=== PATIENT | male | born 1970 ===

== ENCOUNTER 2017-03-29 23:16 | Emergency (ER) | payer SELFPAY ==
[2017-03-29 23:36] VITALS: O2SAT 97
[2017-03-30] MEDS ORDERED: Albuterol-Ipratrop 3 mg / 0.5 (3 ml) UD IH STA (03:12)
--- NOTE | 2017-03-30 03:13 | ED PDOC ---
HPI: CCC, URI, Sore Throat Time Seen by Provider: 03/30/17 02:47 Chief Complaint (Nursing): Flu-like Symptoms Chief Complaint (Provider): flu-like symptoms History Per: Patient, Family (brother) History/Exam Limitations: no limitations Onset/Duration Of Symptoms: Days (4) Current Symptoms Are (Timing): Still Present Additional Complaint(s): 47 y/o male presents with flu-like symptoms x 4 days. Patient reports fever, headache, bodyaches, nasal congestion, productive cough. Denies ear pain, vomiting, chest pain, shortness of breath, palpitations, changes in bowel movements, recent travel, sick contacts. Tylenol last taken at noon yesterday. Past Medical History Reviewed: Historical Data, Nursing Documentation, Vital Signs Vital Signs: Last Vital Signs Temp 100.5 F H 03/29/17 23:33 Pulse 74 03/29/17 23:33 Resp 16 03/29/17 23:33 BP 130/73 03/29/17 23:33 Pulse Ox 97 03/30/17 04:30 - Medical History PMH: Hypercholesterolemia - Surgical History Surgical History: No Surg Hx - Family History Family History: States: Unknown Family Hx - Home Medications Home Medications: Ambulatory Orders Medication Instructions Recorded Dicyclomine [Bentyl] 20 mg PO Q12 PRN #20 tab 05/14/14 Ondansetron [Zofran Odt] 4 mg PO Q6 PRN #12 odt 05/14/14 Fluticasone Nasal [Flonase] 1 actuation NS BID #1 bottle 03/30/17 Ibuprofen [Motrin Tab] 1 tab PO Q6 PRN #20 tab 03/30/17 Promethazine DM [Phenergan DM 5 ml PO Q6 PRN #1 bottle 03/30/17 Syrup] - Allergies Allergies/Adverse Reactions: Allergies Allergy/AdvReac Type Severity Reaction Status Date / Time No Known Allergies Allergy Verified 03/29/17 23:33 Review of Systems ROS Statement: Except As Marked, All Systems Reviewed And Found Negative Constitutional: Positive for: Fever, Chills ENT: Positive for: Nose Congestion Respiratory: Positive for: Cough, Sputum Physical Exam - Reviewed Nursing Documentation Reviewed: Yes Vital Signs Reviewed: Yes - Physical Exam Appears: Positive for: Well, Non-toxic, No Acute Distress Head Exam: Positive for: ATRAUMATIC, NORMAL INSPECTION, NORMOCEPHALIC Skin: Positive for: Normal Color Eye Exam: Positive for: Normal appearance ENT: Positive for: Nasal Congestion Cardiovascular/Chest: Positive for: Regular Rate, Rhythm Respiratory: Positive for: Normal Breath Sounds Gastrointestinal/Abdominal: Positive for: Normal Exam Back: Positive for: Normal Inspection Extremity: Positive for: Normal ROM Neurologic/Psych: Positive for: Alert, Oriented - ECG O2 Sat by Pulse Oximetry: 97 - Radiology X-Ray: Viewed By Tn X-Ray Interpretation: No Acute Disease - Progress ED Course And Treament: chest xray Patient educated on findings, out of window for tamiflu treatment. Rx ibuprofen, flonase, promethazine DM given advised fluids, rest. Follow up PMD 2-3 days. Return precautions given. Disposition - Clinical Impression Clinical Impression: Influenza-like symptoms - Patient ED Disposition Is Patient to be Admitted: No Counseled Patient/Family Regarding: Studies Performed, Diagnosis, Need For Followup, Rx Given - Disposition Referrals: [facility] [Outside] Disposition: Routine/Home Disposition Time: 04:42 Condition: IMPROVED Prescriptions: Fluticasone Nasal [Flonase] 1 actuation NS BID #1 bottle Ibuprofen [Motrin Tab] 1 tab PO Q6 PRN #20 tab PRN Reason: Fever >100.4 F Promethazine DM [Phenergan DM Syrup] 5 ml PO Q6 PRN #1 bottle PRN Reason: Cough Instructions: Influenza (ED) Forms: [employer] (Fijian) Print Language: LIBYAN
[2017-03-30] MEDS ORDERED: Albuterol-Ipratrop 3 mg / 0.5 (3 ml) UD ONE (03:27)
[2017-03-30 04:47] VITALS: BP 116/68; PULSE 80; RESP 17; TEMP 99.2
--- NOTE | 2017-03-30 10:24 | RAD ---
HISTORY: fever, cough COMPARISON: Comparison chest dated 04/07/2009. TECHNIQUE: Chest PA and lateral FINDINGS: LUNGS: Minor atelectasis and or scarring changes left mid to lower lung field and to a lesser degree the medial aspect right lung base PLEURA: No significant pleural effusion identified. No pneumothorax apparent. CARDIOVASCULAR: Normal. OSSEOUS STRUCTURES: Minor multilevel degenerative spondylosis of the thoracic spine VISUALIZED UPPER ABDOMEN: Normal. OTHER FINDINGS: None. IMPRESSION: Minor atelectasis and or scarring changes left mid to lower lung field and to a lesser degree the medial aspect right lung base
== END 2017-03-30 04:57 | disposition home or self-care (01) ==
LOC: H.ER 23:16
DX: J11.1 Influenza due to unidentified influenza virus with other respiratory manifestations (principal); E78.00 Pure hypercholesterolemia, unspecified